=== PATIENT | male | born 1960 | race Caucasian/White ===

== ENCOUNTER → 2017-04-27 | Day surgery (SDC) | payer BC ==
[~2017-04-27] MED LIST: BUPIVACAINE/EPINEPHRINE 0.5% 50 ML VIAL ONE; KETOROLAC TROMETHAMINE 30 MG/ML (IVP) VIAL IV PUSH ONE; LACTATED RINGER'S 1000 ML INJ 1,000 ML ONE; MIDAZOLAM HCL 2 MG/2 ML VIAL ONE; NAPR250T PO; ONDANSETRON HCL 4 MG/2 ML VIAL IV PUSH ONE; PROPOFOL 200 MG/20 ML AMP IV ONE; XARE20TA PO; ceFAZolin INJ 1,000 MG VIAL ONE
--- NOTE | 2017-04-29 12:21 | MP ---
cc: DEBBIE JULIAN M.D. DATE OF SURGERY: 04/27/2017. PREOPERATIVE DIAGNOSIS: Left knee medial and lateral meniscus tear. POSTOPERATIVE DIAGNOSES: Left knee medial and lateral meniscus tear. OPERATIVE PROCEDURE PERFORMED: Left knee arthroscopic partial medial and lateral meniscectomy. SURGEON: Dr. Debbie Julian ANESTHESIA: General. ESTIMATED BLOOD LOSS: Less than 10 cc. TOURNIQUET TIME: Zero minutes. COMPLICATIONS: None. JUSTIFICATION FOR THE PROCEDURE: This patient is a 57-year-old male who injured his left knee. He has had persistent pain in regards to his condition and failed conservative. Clinical exam as well as MRI confirmed the above-named findings. The patient was counselled as to the risks, benefits and alternatives to the above-named proposed surgical procedure and he did wish to proceed with surgery. DESCRIPTION OF THE PROCEDURE IN DETAIL: Written consent was obtained. The patient was identified by name and taken to the operating room and placed in the supine position. General anesthesia was administered as well as 1 gram of IV Ancef. The left leg was carefully placed in the well-padded leg wei and the left lower extremity was prepped and draped in the usual sterile fashion using isopropyl alcohol, Hibiclens solution and DuraPrep solution. After a time out was performed, standard medial and lateral parapatellar arthroscopic portals were established. 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 The medial compartment revealed a large complex tear of the posterior horn of the medial meniscus. An arthroscopic biter followed by an arthroscopic shaver was introduced in the medial compartment to perform partial meniscectomy. The meniscal rim was probed and noted to be stable. There was evidence of diffuse grade 2 and some grade 3 chondromalacic changes of the medial femoral condyle. The intercondylar notch revealed the anterior and posterior cruciate ligaments to be intact. The lateral compartment did reveal a midbody tear lateral meniscus extending into the anterior and posterior horns. An arthroscopic shaver was introduced into the lateral compartment to perform partial lateral meniscectomy. The meniscal rim was probed and noted to be stable at the conclusion of the surgical procedure. 30 mL of 0.5% Marcaine with epinephrine was injected into the knee joint. The arthroscopic portals were closed with 3-0 Prolene suture. Sterile dressings were applied. The patient tolerated the procedure well. No intraoperative complications were noted. MD CASSANDRA Alcala/KANA /11:33 AM /12:10 PM
== END | disposition home or self-care (01) ==
LOC: ESDC 09:42
PROVIDERS: ATTEND Orthopaedic Surgery Sports Medicine
DX: S83.232A Complex tear of medial meniscus, current injury, left knee, initial encounter (principal); S83.282A Other tear of lateral meniscus, current injury, left knee, initial encounter; M94.262 Chondromalacia, left knee
CPT/HCPCS: 01400; 29880; J0690; J1885; J2250; J2405; J3010; J7120